=== PATIENT | male | born 1995 ===

== ENCOUNTER → 2016-07-09 | Outpatient (CLI) | payer OTHER ==
--- NOTE | 2016-07-10 15:56 | CDE ---
ADMIT: 07/09/2016 [facility]: [facility] MR#: [id number] [id number] [facility] [address] [place], [place] [address] RODRI COLLADO [address] [place] [address] Chemical Dependency Evaluation SEX: M AGE: 20 : 1995 A. DEMOGRAPHICS: NAME: Rodri Collado DATE OF : 1995 EVALUATING COUNSELOR: STEVEN Mares LADC DATE OF EVALUATION: 07/09/2016 B. PRESENTING PROBLEM/CHIEF COMPLAINT: Client reported he was charged with possession of a controlled substance and was placed on probation for a year. His commercial escrow officer, Gladis Arango recommended he have this evaluation completed. C. MEDICAL HISTORY: Client reported in 2004, he had a hairline fracture of the wrist. He is not under any doctor's care at this time and has not been seen by his doctor since 2012. He denies any other health concerns. D. WORK/SCHOOL/ HISTORY: Client reported he graduated from high school and he does have some college, however, he did not finish. 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 He is currently employed at [employer] and works about 20 hours per week. He denies being in the . E. ALCOHOL/DRUG ASSESSMENT SUMMARY: ALCOHOL: Age of first use for alcohol was 17. He stated he has only been an occasional drinker, who drinks once every few months. His last date of use was March of 2016. MARIJUANA: Age of first use was 15. He stated he was an occassional smoker, but became a daily smoker in the last two years. He has not smoked any marijuana since October of 2015. COCAINE: Age of first use was 19. He tried it one time. METHAMPHETAMINE: Age of first use was 17. He stated he became a daily user and would use 1/2-1/4 gram per day, in the least. He reported he moved to [place] to get away from it and quit using.Date of last use was March of 2016. HALLUCINOGENS: He tried acid one time. He did not know when. HEROIN: No use reported. PRESCRIPTION DRUGS: No use reported. OTHER DRUGS (INHALANTS, OVER THE COUNTER, ETC): No use reported. NICOTINE: Age of first use was 17. He is a daily smoker. Negative consequences include family issues; he lost some friends; he dropped out of school; he bounced around to different jobs; he has psychological and emotional issues; he borrowed a lot of money and used multiple credit cards; he felt like it fried his brain and ruined his teeth; and legal. ADMIT: 07/09/2016 RM/LOC: [facility] MR#: [id number] [address] [place] [id number] RODRI COLLADO [address] [place] [address] [address] [place] [address] Chemical Dependency Evaluation SEX: M AGE: 20 : 1995 F. LEGAL HISTORY: He stated he has been charged with paraphernalia twice; fined for both of them, and the current charge, which is possession of a controlled substance, and he is now on probation for a year. G. FAMILY/SOCIAL/PEER HISTORY: Client reported he grew up in [place], [place], with his mother and stepdad, three of his brothers and a sister. His parents in 2002 and his dad went to fci. He did not get to spend time with him until he was 17 and he stated the relationship he has with him is not even a real relationship because he does not know him. He stated his relationship with his mom is good, and that she is recently disabled and suffers from depression due to fibromyalgia. He stated he gets along well with his stepfather, who is strict. He is not in a relationship and has not been for about a year. Client reported the majority of his friends are not users and he prefers to associate with people who do not drink or use. H. PSYCHIATRIC/BEHAVIORAL HISTORY: Client stated he had thoughts of suicide in the past, he said it would happen multiple times when he was using. He has not made any attempts. When asked if he was considering it now, he said it is on his mind, but he is not suicidal and does not have a plan. Client heard I believed he needed to be on some type of antidpression medication, due to having suicidal thoughts ion the past. He was referred to Dr. Gutiérrez, who is our special forces medical sergeant. He has not ever been under any inpatient or outpatient treatment for mental health or behavior problems. I. COLLATERAL INFORMATION: I did try to contact his erisa attorney and his brother, and I have not heard back from them. THE DRINKER TYPE RATING: Is a measure of how the client perceives their own drinking and/or using. This rating is indicative of how resistant or accepting the person is to the drinking problem. The client chose their rating from the following classifications: ALCOHOL Total Abstainer Light Social (non-problem) Drinker Moderate Social (non-problem) Drinker User Heavy Social (non-problem)Drinker Problem Drinker ADMIT: 07/09/2016 RM/LOC: [facility] MR#: [id number] [address] [place] [id number] RODRI COLLADO [address] [place] [address] [address] [place] [address] Chemical Dependency Evaluation SEX: M AGE: 20 : 1995 OTHER DRUG Nonuser Light Social (non-problem) User Moderate Social (non-problem) User Heavy Social (non-problem) User Problem User Addicted/Dependent He circled light social nonproblem drinker and a light social nonproblem user. SUBSTANCE ABUSE SUBTLE SCREENING INVENTORY (SASSI): The SASSI is an assessment tool specifically designed to provide a clearer picture of what lies beneath the facade presented by most patients or clients. Scores on this assessment aid in distinguishing nonabusers from abusers, alcoholics from drug abusers and nondefensive clients from defensive ones. The incorporation of a "denial scale" further enhances the ability to make an accurate recommendation. Client scores are: Face Valid Alcohol (FVA): 2 Face Valid Other Drugs (FVOD): 7 Symptoms (SYM): 6 Obvious Attributes (OAT): 7 Subtle Attributes (SAT): 3 Defensiveness (DEF): 2 Supplemental Addiction Measure (TASHA): 11 Family versus Controls (FAM): 8 Correctional (COR): 8 Random Answering Pattern (RAP):0 These scores would indicate that he has a low probability of having a substance dependance disorder. However, with a DEF score of 2, it states: A DEF score below a T40,(which he is well below a T40), it may not simply reflect low defensiveness but rather a tendency to be overly self-critical, and can result from problems with self-esteem and can be related to symptoms of depression such as loss of energy, a sense of hopelessness, and suicidal ideation. So, that being said, he has a low probability of having a substance dependence disorder, however, he has a rating of 6 on symptoms, which suggests further testing. We administered the ASI. Please see attached summary sheet. K. CLINICAL IMPRESSION: Client presented well. He talked about some past childhood issues he had to deal ADMIT: 07/09/2016 RM/LOC: [facility] MR#: [id number] [id number] [place] [id number] RODRI COLLADO [address] [facility] [address] [place] [address] Chemical Dependency Evaluation SEX: M AGE: 20 : 1995 with. He also talked about being on probation and he is willing to do some treatment. DSM diagnoses: 1. 304.40, Stimulant Use Disorder, Severe. 2. 304.30, Cannabis Use Disorder, Severe. L. RECOMMENDATIONS PRESENTED TO CLIENT: It is recommended that he participate in an outpatient treatment program where he can get some help with past trauma issues as well as learn about the disease of addiction so he does not return to using. He is scheduled to begin seeing Dioni Linares on 07/22/16 at 8:00 a.m. He is also recommended to abstain from all drugs and alcohol, see Dr. Gutiérrez and start taking better care of himself. CLIENT/FAMILY Response: He is in agreement with this. ADMIT: 07/09/2016 RM/LOC: [facility] MR#: [id number] [address] [id number] RODRI COLLADO [address] [place] [address] [address] [place] [address] Chemical Dependency Evaluation SEX: M AGE: 20 : 1995 ASA CLINICAL ASSESSMENT CRITERIA: Low/Medium/High Dimension 1 = Intoxication and Withdrawal (i.e. history of withdrawal, level of current use): Low. Dimension 2 = Medical (i.e. , diabetes, medications, chronic conditions): Low. Dimension 3 = Emotional/Behavior Conditions (i.e. psych history, impulsivity, depression, anxiety, trauma history): Medium. Dimension 4 = Treatment Acceptance/Resistance (i.e. past history, minimization/blame, acknowledgement of problem, pressure to seek treatment, does not feel they have a problem): Medium. Dimension 5 = Relapse Potential (i.e. inability to abstain, use despite consequences, significant preoccupation, relapse despite outpatient treatment attempts): Medium. Dimension 6 = Recovery/Living Environment (i.e. current users reside in environment, family attitude, lack of consistent adult support in living environment, high exposure to using in social/work environment): Medium. CRIMINOGENIC RISK FACTORS: Low/Moderate/High Antisocial Attitudes: Medium. Antisocial Peers: Low. Self Control Skills: Medium. Family Dysfunction: Medium. Past Criminality: Low. STEVEN Mares LADC/ jessica JOB #: [id number] CC:
== END | disposition home or self-care (01) ==
LOC: ADTC.GI 08:13
DX: F12.20 Cannabis dependence, uncomplicated (principal); F15.20 Other stimulant dependence, uncomplicated